=== PATIENT | female | born 1980 | race Caucasian/White ===

== ENCOUNTER → 2019-09-30 | Outpatient (CLI) | payer OTHER ==
[~2019-09-30] MED LIST: MIRT15TA6 PO; QUET100T PO
--- NOTE | 2019-09-30 16:05 | Diagnostic Imaging Report ---
INDICATION: Left shoulder pain. TIME OF EXAM: 3:42 PM 2 views left shoulder demonstrate normal glenohumeral and acromioclavicular alignment. Acromiohumeral space is normal. No fracture or dislocation is seen. IMPRESSION: No acute bony abnormality is detected. Dictated by: Dictated on workstation # [id number]
== END ==
LOC: RAD FS 15:33
PROVIDERS: ATTEND Family Medicine
DX: M25.512 Pain in left shoulder (principal)
CPT/HCPCS: 73030

== ENCOUNTER 2019-12-31 19:48 | Emergency (ER) | payer OTHER ==
[~2019-12-31] VITALS: Ht 162.5 cm; Wt 62.5 kg
[2019-12-31 20:21] LABS: BASOPHILS % (AUTO) 0 % (0-10); EOSINOPHILS # (AUTO) 0.1 10^3/uL (0.0-0.3); EOSINOPHILS % (AUTO) 1 % (0-10); HEMATOCRIT 38 % (35-52); HEMOGLOBIN 13.4 G/DL (11.5-16.0); LYMPHOCYTES # (AUTO) 2.4 X 10^3 (1.0-4.0); LYMPHOCYTES % (AUTO) 30 % (12-44); MEAN CORPUSCULAR HEMOGLOBIN 31 PG (25-34); MEAN CORPUSCULAR HGB CONC 35 G/DL (32-36); MEAN CORPUSCULAR VOLUME 89 FL (80-99); MEAN PLATELET VOLUME 9.4 FL (7.4-10.4); MONOCYTES # (AUTO) 0.6 X 10^3 (0.0-1.0); MONOCYTES % (AUTO) 8 % (0-12); NEUTROPHILS # (AUTO) 4.8 X 10^3 (1.8-7.8); NEUTROPHILS % (AUTO) 61 % (42-75); PLATELET COUNT 254 10^3/uL (130-400); RED CELL DISTRIBUTION WIDTH 11.9 % (10.0-14.5)
--- NOTE | 2019-12-31 20:26 | ED Cough/URI ---
General Chief Complaint: Respiratory Problems Stated Complaint: SOB,CP, ARM NUMBNESS Nursing Triage Note: PATIENT STATES THAT SHE HAS ASTHMA AND HAS BEEN SOB ON AND OFF SINCE LAST MONDAY (12/25/19) AND THAT HER ALBUTEROL HAS NOT BEEN HELPING. SHE DENIES HAVING A FEVER OR A COUGH. Sepsis Screen: Possible Severe Sepsis Risk Source: patient History of Present Illness Date Seen by Provider: Dec 31, 2019 Time Seen by Provider: 20:25 Initial Comments To ER with a complaint of a one-week history of "burning sharp" chest pain. She's been intermittently short of breath. No cough no fevers. History of asthma. Does not smoke. Timing/Duration: just prior to arrival Severity/Quality: moderate Associated Symptoms: cough, shortness of breath Allergies and Home Medications Allergies Coded Allergies: No Known Drug Allergies (Unverified , 06/16/11) Home Medications Prednisone 20 Mg Tab, 40 MG PO DAILY Prescribed by: PRASANNA RICHTER on 12/31/192117 Patient Home Medication List Home Medication List Reviewed: Yes Review of Systems Review of Systems Constitutional: see HPI EENTM: see HPI Respiratory: see HPI Cardiovascular: no symptoms reported Genitourinary: no symptoms reported Musculoskeletal: no symptoms reported Skin: no symptoms reported Psychiatric/Neurological: No Symptoms Reported Hematologic/Lymphatic: No Symptoms Reported Immunological/Allergic: no symptoms reported Past Lyxiqea-Bbkjgx-Pafeyi Hx Patient Social History Recent Foreign Travel: No Contact w/Someone Who Travel: No Recent Infectious Disease Expo: No Past Medical History : No Physical Exam Vital Signs - First Documented 12/31/19 20:11 Temp 36.4 Pulse 92 Resp 22 B/P (MAP) 127/92 (104) Pulse Ox 99 O2 Delivery Room Air Capillary Refill : Less Than 3 Seconds Height: '" Weight: lbs. oz. kg; 23.00 BMI Method: General Appearance: WD/WN, no apparent distress Eyes: Bilateral Eye Normal Inspection, Bilateral Eye PERRL, Bilateral Eye EOMI Neck: non-tender, full range of motion Respiratory: no respiratory distress, no accessory muscle use, other (clear lung sounds good air movement oxygen saturation 100% room air) Cardiovascular: regular rate, rhythm, no murmur, other (rate of 95-105) Gastrointestinal: normal bowel sounds, soft Neurologic/Psychiatric: alert, normal mood/affect, oriented x 3 Skin: normal color, warm/dry Progress/Results/Core Measures Suspected Sepsis Recent Fever Within 48 Hours: No Infection Criteria Present: Suspected New Infection New/Unexplained Altered Menta: No Sepsis Screen: Possible Severe Sepsis Risk SIRS Temperature: Pulse: 92 Respiratory Rate: 22 Laboratory Tests 12/31/19 20:12: White Blood Count 8.0 Blood Pressure 127 /92 Mean: 104 Laboratory Tests 12/31/19 20:12: Creatinine 0.85, INR Comment 0.9, Platelet Count 254, Total Bilirubin 0.3 Results/Orders Lab Results Laboratory Tests Test 12/31/19 20:12 Range/Units White Blood Count 8.0 4.3-11.0 10^3/uL Red Blood Count 4.29 L 4.35-5.85 10^6/uL Hemoglobin 13.4 11.5-16.0 G/DL Hematocrit 38 35-52 % Mean Corpuscular Volume 89 80-99 FL Mean Corpuscular Hemoglobin 31 25-34 PG Mean Corpuscular Hemoglobin Concent 35 32-36 G/DL Red Cell Distribution Width 11.9 10.0-14.5 % Platelet Count 254 130-400 10^3/uL Mean Platelet Volume 9.4 7.4-10.4 FL Neutrophils (%) (Auto) 61 42-75 % Lymphocytes (%) (Auto) 30 12-44 % Monocytes (%) (Auto) 8 0-12 % Eosinophils (%) (Auto) 1 0-10 % Basophils (%) (Auto) 0 0-10 % Neutrophils # (Auto) 4.8 1.8-7.8 X 10^3 Lymphocytes # (Auto) 2.4 1.0-4.0 X 10^3 Monocytes # (Auto) 0.6 0.0-1.0 X 10^3 Eosinophils # (Auto) 0.1 0.0-0.3 10^3/uL Basophils # (Auto) 0.0 0.0-0.1 10^3/uL Prothrombin Time 12.3 12.2-14.7 SEC INR Comment 0.9 0.8-1.4 Activated Partial Thromboplast Time 28 24-35 SEC D-Dimer 0.28 0.00-0.49 UG/ML Sodium Level 138 135-145 MMOL/L Potassium Level 3.4 L 3.6-5.0 MMOL/L Chloride Level 105 98-107 MMOL/L Carbon Dioxide Level 22 21-32 MMOL/L Anion Gap 11 5-14 MMOL/L Blood Urea Nitrogen 13 7-18 MG/DL Creatinine 0.85 0.60-1.30 MG/DL Estimat Glomerular Filtration Rate > 60 BUN/Creatinine Ratio 15 Glucose Level 95 70-105 MG/DL Calcium Level 9.4 8.5-10.1 MG/DL Corrected Calcium 9.0 8.5-10.1 MG/DL Magnesium Level 2.0 1.6-2.4 MG/DL Total Bilirubin 0.3 0.1-1.0 MG/DL Aspartate Amino Transf (AST/SGOT) 24 5-34 U/L Alanine Aminotransferase (ALT/SGPT) 23 0-55 U/L Alkaline Phosphatase 55 40-136 U/L Myoglobin 24.7 10.0-92.0 NG/ML Troponin I < 0.028 <0.028 NG/ML B-Type Natriuretic Peptide < 10.0 <100.0 PG/ML Total Protein 7.5 6.4-8.2 GM/DL Albumin 4.5 3.2-4.5 GM/DL My Orders Orders - PRASANNA RICHTER [employer] CONDITIONING MECH[employer]IC Cbc With Automated Diff (12/31/19 19:50) Magnesium (12/31/19 19:50) Chest 1 View, Ap/Pa Only (12/31/19 19:50) Ekg Tracing (12/31/19 19:50) Comprehensive Metabolic Panel (12/31/19 19:50) Myoglobin Serum (12/31/19 19:50) Protime With Inr (12/31/19 19:50) Partial Thromboplastin Time (12/31/19 19:50) O2 (12/31/19 19:50) Monitor-Rhythm Ecg Trace Only (12/31/19 19:50) Ed Iv/Invasive Line Start (12/31/19 19:50) Troponin I (12/31/19 19:50) Fibrin Degradation Products (12/31/19 19:50) BNP (12/31/19 20:15) Ketorolac Injection (Toradol Injection) (12/31/19 20:30) Hs C Reactive Protein (12/31/19 21:18) Medications Given in ED Current Medications Medications Dose Ordered Sig/Jenny Route Start Time Stop Time Status Last Admin Dose Admin Ketorolac Tromethamine 15 mg ONCE ONCE IVP 12/31/19 20:30 12/31/19 20:31 DC 12/31/19 20:41 15 MG Vital Signs/I&O 12/31/19 12/31/19 20:11 21:25 Temp 36.4 36.5 Pulse 92 93 Resp 22 20 B/P (MAP) 127/92 (104) 112/80 Pulse Ox 99 99 O2 Delivery Room Air Room Air Capillary Refill : Less Than 3 Seconds Blood Pressure Mean: 104 Departure Communication (Admissions) Patient initially reported no drug allergies. After discharge she came back to the registration desk and reports that she is allergic to prednisone. Advised her not to take it. Impression Primary Impression: Chest pain, pleuritic Additional Impression: intermittent dyspnea Disposition: HOME, SELF-CARE Condition: Stable Departure-Patient Inst. Decision time for Depature: 21:17 Referrals: SELFMALLORY MD (PCP/Family) Primary Care Physician Patient Instructions: Pleuritic Chest Pain Add. Discharge Instructions: Prednisone as directed 2. Return to ER for any concerns 3. Follow-up with your doctor later this week for recheck. All discharge instructions reviewed with patient and/or family. Voiced understanding. Scripts Prednisone (Prednisone) 20 Mg Tab 40 MG PO DAILY, #6 TAB 0 Refills Prov: PRASANNA RICHTER APRN 12/31/19 Work/School Note: Work Release Form Date Seen in the Emergency Department: Dec 31, 2019 Return to Work: Jan 02, 2020 PRASANNA RICHTER APRN Dec 31, 2019 20:26
[2019-12-31] MEDS ORDERED: KETOROLAC 30 MG/ML VIAL IVP ONE (20:30)
[2019-12-31 20:34] LABS: INR 0.9 (0.8-1.4); PROTHROMBIN TIME PATIENT 12.3 SEC (12.2-14.7)
[2019-12-31 20:41] LABS: ALANINE AMINOTRANSFERASE 23 U/L (0-55); ALBUMIN 4.5 GM/DL (3.2-4.5); ALKALINE PHOSPHATASE 55 U/L (40-136); BILIRUBIN,TOTAL 0.3 MG/DL (0.1-1.0); BUN/CREATININE RATIO 15; CALCIUM 9.4 MG/DL (8.5-10.1); CARBON DIOXIDE 22 MMOL/L (21-32); CHLORIDE 105 MMOL/L (98-107); CREATININE SERUM 0.85 MG/DL (0.60-1.30); GFR ESTIMATED > 60; GLUCOSE 95 MG/DL (70-105); POTASSIUM 3.4 MMOL/L (3.6-5.0); SODIUM 138 MMOL/L (135-145); TOTAL PROTEIN 7.5 GM/DL (6.4-8.2)
--- OUTSIDE RECORDS SUMMARY | 2019-12-31 20:56 | XMS REPORT | Continuity of Care Document ---
Demographics x Preferred Language Unknown Marital Status Unknown Episcopal Affiliation Unknown Race Unknown Ethnic Group Unknown Author Organization Unknown Address Unknown Phone Unavailable Allergies Active Description Code Type Severity Reaction Onset Reported/Identified Relationship to Patient Clinical Status Yes No Known Drug Allergies [id number] Drug Allergy Unknown N/A 06/16/2011 Medications There is no data. Problems Date Dx Coded Attending Type Code Diagnosis Diagnosed By 10/03/2019 ROSCOE GONZALEZ MD, Ot M25.512 PAIN IN LEFT SHOULDER 10/03/2019 ROSCOE GONZALEZ MD, Ot M25.512 PAIN IN LEFT SHOULDER 10/06/2019 ROSCOE GONZALEZ MD, Ot M25.512 PAIN IN LEFT SHOULDER Procedures There is no data. Results Test Result Range ANEMIA PANEL - 01/07/19 10:30 IRON, TOTAL 72 mcg/dL 40-190 FERRITIN 39 ng/mL 10-154 IRON BINDING CAPACITY 304 mcg/dL (calc) 250-450 % SATURATION 24 % (calc) 11-50 CMP - 01/07/19 10:30 GLUCOSE 89 mg/dL 65-139 UREA NITROGEN (BUN) 17 mg/dL 7-25 CREATININE 0.75 mg/dL 0.50-1.10 eGFR NON-AFR. CHILEAN 102 mL/min/1.73m2 > OR = 60 eGFR 118 mL/min/1.73m2 > OR = 60 BUN/CREATININE RATIO NOT APPLICABLE (calc) 6-22 SODIUM 134 mmol/L 135-146 POTASSIUM 4.0 mmol/L 3.5-5.3 CHLORIDE 101 mmol/L 98-110 CARBON DIOXIDE 27 mmol/L 20-32 CALCIUM 9.7 mg/dL 8.6-10.2 PROTEIN, TOTAL 6.8 g/dL 6.1-8.1 ALBUMIN 4.6 g/dL 3.6-5.1 GLOBULIN 2.2 g/dL (calc) 1.9-3.7 ALBUMIN/GLOBULIN RATIO 2.1 (calc) 1.0-2. 5 BILIRUBIN, TOTAL 0.3 mg/dL 0.2-1.2 ALKALINE PHOSPHATASE 46 U/L 33-115 AST 15 U/L 10-30 ALT 15 U/L 6-29 Encounters ACCT No. Visit Date/Time Discharge Status Pt. Type Provider Facility Loc./Unit Complaint [id number] 10/17/2019 10:45:00 10/17/2019 23:59: 59 [facility] Outpatient [facility] [id number] 01/07/2019 10:45:00 Document Registration [id number] 09/30/2019 15:33:00 020 23:59:59 CLS Outpatient LISA BRITO, ROSCOE [facility] RAD FS M25.512
[2019-12-31] MEDS ORDERED: PRD20T PO (21:18)
--- NOTE | 2019-12-31 21:22 | Diagnostic Imaging Report ---
INDICATION: History of asthma, intermittent shortness of breath for several days.. TECHNIQUE: Single view chest 9:01 PM. CORRELATION STUDY: 06/16/2011 FINDINGS: The heart size, mediastinal configuration and pulmonary vascularity are within normal limits. The lungs are clear with no consolidating infiltrate. There is no significant effusion or pneumothorax. IMPRESSION: 1. Negative for acute abnormality of the chest. Dictated by: Dictated on workstation # [id number]
[2019-12-31 21:25] VITALS: BP 112/80
== END 2019-12-31 21:27 | disposition home or self-care (01) ==
LOC: EDUNIT# 19:48 → ER 19:51
DX: R07.81 Pleurodynia (principal); R06.09 Other forms of dyspnea
CPT/HCPCS: 36415; 71045; 80053; 83735; 83874; 83880; 84484; 85025; 85379; 85610; 85730; 86141; 93005; 93041

== ENCOUNTER 2020-01-03 08:55 | Outpatient (RCR) | payer OTHER ==
[~2020-01-03 08:55] MED LIST changes: +PRD20T PO
== END 2020-04-02 | disposition home or self-care (01) ==
LOC: CARD 08:55
PROVIDERS: ATTEND Nurse Practitioner
DX: I49.1 Atrial premature depolarization (principal); I49.3 Ventricular premature depolarization
CPT/HCPCS: 93225; 93226

== ENCOUNTER → 2020-01-06 | Outpatient (CLI) | payer OTHER ==
--- NOTE | 2020-01-06 16:20 | Diagnostic Imaging Report ---
EXAMINATION: CT Chest without contrast. TECHNIQUE: Multiple contiguous axial images were obtained through the chest without the use of intravenous contrast. All CT scans use one or more of the following dose optimizing techniques: automated exposure control, MA and/or KvP adjustment based on a patient size and exam type, or iterative reconstruction. HISTORY: Shortness of breath and chest pain. COMPARISON: None available. FINDINGS: There is no edema or pneumonia. No pleural effusion. No pneumothorax. No suspicious nodules. Heart size is normal. There are mild coronary artery calcifications. No pericardial effusion. Aorta is normal in caliber. There is no axillary or supraclavicular lymphadenopathy. There is no mediastinal lymphadenopathy. There is normal thymus in the anterior mediastinum. Limited views of the upper abdomen are unremarkable. There are no suspicious osseous lesions. IMPRESSION: 1. Clear lungs. Dictated by: Dictated on workstation # [id number]
== END ==
LOC: RAD 15:42
PROVIDERS: ATTEND Nurse Practitioner
DX: R07.9 Chest pain, unspecified (principal); R06.00 Dyspnea, unspecified; R42 Dizziness and giddiness
CPT/HCPCS: 71250

== ENCOUNTER → 2020-04-07 | Outpatient (CLI) | payer OTHER | LOC: CARD 09:39 | PROVIDERS: ATTEND Internal Medicine Cardiovascular Disease | DX: R07.89 Other chest pain (principal) | CPT/HCPCS: 93306; 93351 ==

== ENCOUNTER → 2021-01-05 | Outpatient (CLI) | payer BC, OTHER ==
--- NOTE | 2021-01-05 09:12 | Diagnostic Imaging Report ---
EXAM: CT abdomen and pelvis without intravenous contrast. All CT scans use one or more of the following dose optimizing techniques: automated exposure control, MA and/or KvP adjustment based on patient size and exam type or iterative reconstruction. INDICATION: Abdominal pain with constipation. FINDINGS: The lung bases are clear. Liver appears normal. Gallbladder and bile ducts are normal. Pancreas and spleen are normal. Adrenal glands and kidneys appear normal. The stomach and small bowel are not distended. There is moderate amount of stool present throughout the colon to the proximal rectum. No evidence of impacted stool in the rectum. No evidence of bowel wall thickening or diverticulitis. The appendix appears to be absent. No pelvic masses. Uterus and ovaries appear normal. Bladder is normal. No free air or free fluid. No intra-abdominal adenopathy of pathologic size. IMPRESSION: Moderate stool burden within the colon. No evidence of impacted stool in the rectum. No evidence of small bowel distention. Dictated by: Dictated on workstation # [id number]
== END ==
LOC: RAD FS 07:56
PROVIDERS: ATTEND Family Medicine
DX: R10.9 Unspecified abdominal pain (principal); K59.00 Constipation, unspecified
CPT/HCPCS: 74176

== ENCOUNTER 2021-02-01 06:22 | Outpatient (CLI) | payer BC ==
[~2021-02-01] VITALS: Ht 162.6 cm; Wt 63.6 kg
[2021-02-01] MEDS ORDERED: stool softener (13:32)
[2021-02-01] MEDS ORDERED: RT-ALBUINH IH (13:32)
[2021-02-01] MEDS ORDERED: bisacodyl (13:32)
[2021-02-01] MEDS ORDERED: iron (13:32)
== END 2021-02-01 13:34 | disposition home or self-care (01) ==
LOC: PREOP 06:22
PROVIDERS: ATTEND Surgery
DX: Z01.818 Encounter for other preprocedural examination (principal)

== ENCOUNTER 2021-02-09 10:22 | Day surgery (SDC) | payer BC ==
[~2021-02-09] VITALS: Ht 162.6 cm; Wt 63.6 kg
[~2021-02-09 10:22] MED LIST changes: +LACTATED RINGERS 1,000 ML IV ONE; +RT-ALBUINH IH; +bisacodyl; +iron; +stool softener
[2021-02-09] MEDS ORDERED: LACTATED RINGERS 1,000 ML IV STA (10:25)
[2021-02-09 10:53] VITALS: BP 119/90
[2021-02-09] MEDS ORDERED: PROPOFOL INJECTION 50 ML IV ONE (12:17)
[2021-02-09] MEDS ORDERED: MIDAZOLAM 2 MG/2 ML (VERSED) VIAL ONE (12:18)
--- NOTE | 2021-02-09 12:57 | Progress Note-Pre Operative ---
Pre-Operative Progress Note H&P Reviewed The H&P was reviewed, patient examined and no changes noted. Date Seen by Provider: Feb 09, 2021 Time Seen by Provider: 12:56 Date H&P Reviewed: Feb 09, 2021 Time H&P Reviewed: 12:56 Pre-Operative Diagnosis: lower abdominal pain, chronic constipation ELTON MILLS DO Feb 09, 2021 12:57
--- NOTE | 2021-02-09 13:19 | Progress Note-Post Operative ---
Post-Operative Progess Note Surgeon (s)/Speedboat Driver (s) Surgeon ELTON MILLS DO Speedboat Driver: na Pre-Operative Diagnosis lower abdominal pain, chronic constipation Post-Operative Diagnosis normal colon Procedure & Operative Findings Date of Procedure 02/09/21 Procedure Performed/Findings colonoscopy Anesthesia Type per tractor distributor Estimated Blood Loss Estimated blood loss (mL): na Specimens/Packing Specimens Removed na ELTON MILLS DO Feb 09, 2021 13:19
--- NOTE | 2021-02-09 13:22 | Discharge Inst-Simple/Standard ---
Discharge Inst-Standard Patient Instructions/Follow Up Plan of Care/Instructions/FU: 3 weeks Pat Hines (fiber) by mouth daily. Activity as Tolerated: Yes Discharge Diet: Regular Diet (High fiber) ELTON MILLS DO Feb 09, 2021 13:22
[2021-02-09 13:23] VITALS: BP 111/64
[2021-02-09 13:25] VITALS: BP 109/63
[2021-02-09 14:05] VITALS: BP 109/63
--- NOTE | 2021-02-09 14:25 | Anesthesia-General Post-Op ---
MAC Patient Condition Mental Status/LOC: Same as Preop Cardiovascular: Satisfactory Nausea/Vomiting: Absent Respiratory: Satisfactory Pain: Controlled Complications: Absent Post Op Complications Complications None Follow Up Care/Instructions Patient Instructions None needed. Anesthesiology Discharge Order Discharge Order Patient is doing well, no complaints, stable vital signs, no apparent adverse anesthesia problems. No complications reported per nursing. ROHAN GIRALDO CRNA Feb 09, 2021 14:25
--- NOTE | 2021-02-09 15:10 | OPERATIVE REPORT ---
DATE OF SERVICE: 02/09/2021 PREOPERATIVE DIAGNOSIS: Chronic constipation and lower abdominal pain. POSTOPERATIVE DIAGNOSIS: Normal colon. PROCEDURE PERFORMED: Colonoscopy. SURGEON: Elton Stewart DO ANESTHESIA: Per CERTIFIED MEDICAL CODER. ESTIMATED BLOOD LOSS: None. COMPLICATIONS: None. INDICATIONS FOR PROCEDURE: The patient is a 40-year-old female with chronic constipation and lower abdominal pain. She understands the risks and benefits of procedure for further evaluation and wishes to proceed. Consent was signed in the chart. DESCRIPTION OF PROCEDURE: The patient was taken to the endoscopy suite and placed in a left lateral recumbent position. Timeout was performed. Digital rectal exam was performed. There were no palpable polyps, masses or ulcerations, but some external hemorrhoidal disease. Scope was inserted in the rectum, advanced all the way to the cecum with minimal difficulty. The ileocecal valve was intubated. The terminal ileum appeared. Scope was then slowly retracted back into the colon and then slowly retracted back. Prep was adequate. As the scope was being slowly retracted back, the colon was evaluated. There were no polyps, masses or ulcerations within the cecum, ascending, transverse, descending and sigmoid colon. Once in the rectum, scope was retroflexed noting no other pathology. Scope was returned to its normal position, slowly withdrawn until completely removed, noting no other pathology. The patient tolerated the procedure well without any complications. She was taken to recovery room in a stable condition. RECOMMENDATIONS: The patient will need a repeat colonoscopy per screening guidelines. I would recommend high fiber diet to see if any trouble . If this is not beneficial, would consider trial of Linzess. Job ID: [id number] DocumentID: [id number] Dictated Date: 02/09/2021 13:25:21 Program Production Specialist Date: 02/09/2021 15:09:20 Dictated By: ELTON STEWART DO
== END 2021-02-09 14:10 | disposition home or self-care (01) ==
LOC: ENDO 10:22
PROVIDERS: ATTEND Surgery
DX: K59.09 Other constipation (principal); K64.8 Other hemorrhoids; J45.909 Unspecified asthma, uncomplicated; Z79.899 Other long term (current) drug therapy; Z87.891 Personal history of nicotine dependence; Z90.89 Acquired absence of other organs; Z82.49 Family history of ischemic heart disease and other diseases of the circulatory system; Z83.6 Family history of other diseases of the respiratory system
CPT/HCPCS: 84703

== ENCOUNTER 2022-08-07 12:02 | Emergency (ER) | payer SELFPAY ==
[~2022-08-07] VITALS: Ht 160 cm; Wt 49.9 kg
[~2022-08-07 12:02] MED LIST changes: +ALBU8.5H6 IH; -LACTATED RINGERS 1,000 ML IV ONE; -RT-ALBUINH IH
[2022-08-07 12:20] LABS: BILIRUBIN,URINE NEGATIVE (NEGATIVE); COLOR,URINE YELLOW; GLUCOSE, URINE (UA) NEGATIVE (NEGATIVE); KETONES,URINE NEGATIVE (NEGATIVE); LEUKOCYTE ESTERASE ,URINE NEGATIVE (NEGATIVE); NITRITE,URINE NEGATIVE (NEGATIVE); PROTEIN,URINE TRACE (NEGATIVE)
[2022-08-07] MEDS ORDERED: KETOROLAC 15 MG/ML VIAL IVP STA (12:25)
[2022-08-07] MEDS ORDERED: PANTOPRAZOLE 40 MG (PROTONIX) VIAL IV STA (12:25)
[2022-08-07] MEDS ORDERED: NS IV 1000 ML 1,000 ML IV STA (12:25)
[2022-08-07 12:26] LABS: CLARITY,URINE SLIGHTLY CLOUDY
[2022-08-07 12:27] LABS: BACTERIA,URINE LARGE /HPF
[2022-08-07 12:31] LABS: AMPHETAMINE SCREEN, URINE NEGATIVE (NEGATIVE); BARBITURATE SCREEN URINE NEGATIVE (NEGATIVE); BENZODIAZEPINES SCREEN URINE NEGATIVE (NEGATIVE); CANNABINOID SCREEN, URINE NEGATIVE (NEGATIVE); COCAINE SCREEN URINE NEGATIVE (NEGATIVE); METHADONE STAT NEGATIVE (NEGATIVE); OPIATE SCREEN URINE NEGATIVE (NEGATIVE); OXYCODONE STAT NEGATIVE (NEGATIVE); PROPOXYPHENE STAT NEGATIVE (NEGATIVE); TRICYCLIC ANTIDEPRESSANTS SCRE NEGATIVE (NEGATIVE)
[2022-08-07 12:33] LABS: BASOPHILS % (AUTO) 0 % (0-10); EOSINOPHILS % (AUTO) 0 % (0-10); HEMATOCRIT 40 % (35-52); LYMPHOCYTES # (AUTO) 1.2 10^3/uL (1.0-4.0); LYMPHOCYTES % (AUTO) 11 % (12-44); MEAN CORPUSCULAR HEMOGLOBIN 32 pg (25-34); MEAN CORPUSCULAR HGB CONC 35 g/dL (32-36); MEAN CORPUSCULAR VOLUME 93 fL (80-99); MEAN PLATELET VOLUME 9.6 fL (9.0-12.2); MONOCYTES # (AUTO) 0.7 10^3/uL (0.0-1.0); MONOCYTES % (AUTO) 6 % (0-12); NEUTROPHILS # (AUTO) 8.9 10^3/uL (1.8-7.8); NEUTROPHILS % (AUTO) 82 % (42-75); PLATELET COUNT 291 10^3/uL (130-400); WHITE BLOOD COUNT 10.9 10^3/uL (4.3-11.0)
--- NOTE | 2022-08-07 12:36 | ED General ---
General Chief Complaint: Overdose Stated Complaint: OVERDOSE-MELATONIN Source of Information: Patient, Old Records History of Present Illness Date Seen by Provider: Aug 07, 2022 Time Seen by Provider: 12:05 Initial Comments 41-year-old female presenting with complaints of heavy alcohol intoxication last night and taking 2 bottles of melatonin. She states that she does not like pills and does not remember why she had taken the 2 bottles. She had sent a text to her boyfriend after she took the pills. She continued to drink until about 2 AM. She reports that she had previously quit drinking alcohol and then recently started back to drinking. She acknowledges that she is an alcoholic and states that she wants to quit drinking. She has had suicidal thoughts in the past but never had any specific plan. She denies having suicidal ideation currently. She reports having some chest pressure and was vomiting this morning when she tried to drink Gatorade. She denies ever having alcohol withdrawal seizures or having to be admitted to the hospital for her alcohol usage. She denies taking any other drugs. She states her last menstrual cycle was last week and was normal for her. Associated Systoms: Chest Pain (pressure in chest present all morning); No Cough, No Diaphoresis, No Fever/Chills, No Headaches; Malaise, Nausea/Vomiting (x 2 this am after trying to drink gatorade); No Rash, No Seizure, No Shortness of Air, No Syncope, No Weakness Allergies and Home Medications Allergies Coded Allergies: prednisone (Verified Allergy, Severe, hives, 02/01/21) Patient Home Medication List Home Medication List Reviewed: Yes Albuterol Sulfate (Ventolin Hfa) 1 Puff Puff, 2 PUFF IH QID, (Reported) Entered as Reported by: MALACHI GRAY on 02/01/211331 [bisacodyl] , (Reported) Entered as Reported by: MALACHI GRAY on 02/01/211331 [iron] , (Reported) Entered as Reported by: MALACHI GRAY on 02/01/211331 [stool softener] , (Reported) Entered as Reported by: MALACHI GRAY on 02/01/211331 Review of Systems Review of Systems Constitutional: No chills, No diaphoresis, No dizziness, No fever EENTM: no symptoms reported Respiratory: no symptoms reported Cardiovascular: see HPI Gastrointestinal: see HPI Genitourinary: no symptoms reported; No dysuria, No frequency Musculoskeletal: no symptoms reported Skin: No rash Psychiatric/Neurological: Denies Headache Past Achtxzx-Lbappg-Lieewd Hx Patient Social History Tobacco Use?: Yes Tobacco type used: Cigarettes Substance use?: No Alcohol Use?: Yes Alcohol type: Hard Liquor Alcohol Frequency: Daily Seasonal Allergies Seasonal Allergies: No Past Medical History Surgery/Hospitalization HX: Alcohol Abuse, Asthma Surgeries: Yes (left finger sx, excision eptopic preg x2) Appendectomy, Orthopedic Respiratory: Yes Asthma Currently Using CPAP: No Currently Using BIPAP: No Cardiac: No Neurological: No Female Reproductive Disorders: Ovarian Cyst Sexually Transmitted Disease: No Genitourinary: No Gastrointestinal: No Musculoskeletal: Yes Fibromyalgia Endocrine: No HEENT: No Cancer: No Anxiety, Depression Integumentary: No Blood Disorders: No Adverse Reaction/Blood Tranf: No Physical Exam Vital Signs Vital Signs - First Documented 08/07/22 12:06 Temp 36.2 Pulse 134 Resp 20 B/P (MAP) 116/96 (103) Pulse Ox 98 O2 Delivery Room Air Capillary Refill : Height, Weight, BMI Height: '" Weight: lbs. oz. kg; 24.05 BMI Method: General Appearance: No Apparent Distress, Thin HEENT: PERRL/EOMI, Pharynx Normal, Moist Mucous Membranes Neck: Full Range of Motion, Normal Inspection, Non Tender, Supple Respiratory: Chest Non Tender, Lungs Clear, Normal Breath Sounds, No Accessory Muscle Use, No Respiratory Distress Cardiovascular: Normal Peripheral Pulses, Tachycardia Gastrointestinal: Normal Bowel Sounds, No Pulsatile Mass, Non Tender, Soft Rectal: Deferred Extremity: Normal Capillary Refill, Normal Inspection, No Pedal Edema Neurologic/Psychiatric: Alert, Oriented x3, heel boom operator II-XII Norm as Tested, Other (flat affect) Skin: Normal Color, Warm/Dry Progress/Results/Core Measures Suspected Sepsis SIRS Temperature: Pulse: Respiratory Rate: Laboratory Tests 08/07/22 12:30: White Blood Count 10.9 Blood Pressure / Mean: Laboratory Tests 08/07/22 12:30: Creatinine 0.71, Platelet Count 291, Total Bilirubin 0.2 Results/Orders Lab Results Laboratory Tests Test 08/07/22 12:15 08/07/22 12:30 Range/Units Urine Color YELLOW Urine Clarity SLIGHTLY CLOUDY Urine pH 5.0 5-9 Urine Specific [place] >=1.030 1.016-1.022 Urine Protein TRACE H NEGATIVE Urine Glucose (UA) NEGATIVE NEGATIVE Urine Ketones NEGATIVE NEGATIVE Urine Nitrite NEGATIVE NEGATIVE Urine Bilirubin NEGATIVE NEGATIVE Urine Urobilinogen 0.2 < = 1.0 MG/DL Urine Leukocyte Esterase NEGATIVE NEGATIVE Urine RBC (Auto) NEGATIVE NEGATIVE Urine RBC NONE /HPF Urine WBC 10-25 H /HPF Urine Squamous Epithelial Cells 10-25 H /HPF Urine Crystals NONE /LPF Urine Bacteria LARGE H /HPF Urine Casts NONE /LPF Urine Mucus LARGE H /LPF Urine Culture Indicated YES Urine Opiates Screen NEGATIVE NEGATIVE Urine Oxycodone Screen NEGATIVE NEGATIVE Urine Methadone Screen NEGATIVE NEGATIVE Urine Propoxyphene Screen NEGATIVE NEGATIVE Urine Barbiturates Screen NEGATIVE NEGATIVE Ur Tricyclic Antidepressants Screen NEGATIVE NEGATIVE Urine Phencyclidine Screen NEGATIVE NEGATIVE Urine Amphetamines Screen NEGATIVE NEGATIVE Urine Methamphetamines Screen NEGATIVE NEGATIVE Urine Benzodiazepines Screen NEGATIVE NEGATIVE Urine Cocaine Screen NEGATIVE NEGATIVE Urine Cannabinoids Screen NEGATIVE NEGATIVE White Blood Count 10.9 4.3-11.0 10^3/uL Red Blood Count 4.35 3.80-5.11 10^6/uL Hemoglobin 14.0 11.5-16.0 g/dL Hematocrit 40 35-52 % Mean Corpuscular Volume 93 80-99 fL Mean Corpuscular Hemoglobin 32 25-34 pg Mean Corpuscular Hemoglobin Concent 35 32-36 g/dL Red Cell Distribution Width 12.3 10.0-14.5 % Platelet Count 291 130-400 10^3/uL Mean Platelet Volume 9.6 9.0-12.2 fL Immature Granulocyte % (Auto) 0 % Neutrophils (%) (Auto) 82 H 42-75 % Lymphocytes (%) (Auto) 11 L 12-44 % Monocytes (%) (Auto) 6 0-12 % Eosinophils (%) (Auto) 0 0-10 % Basophils (%) (Auto) 0 0-10 % Neutrophils # (Auto) 8.9 H 1.8-7.8 10^3/uL Lymphocytes # (Auto) 1.2 1.0-4.0 10^3/uL Monocytes # (Auto) 0.7 0.0-1.0 10^3/uL Eosinophils # (Auto) 0.0 0.0-0.3 10^3/uL Basophils # (Auto) 0.0 0.0-0.1 10^3/uL Immature Granulocyte # (Auto) 0.0 0.0-0.1 10^3/uL Sodium Level 140 135-145 MMOL/L Potassium Level 3.5 L 3.6-5.0 MMOL/L Chloride Level 102 98-107 MMOL/L Carbon Dioxide Level 21 21-32 MMOL/L Anion Gap 17 H 5-14 MMOL/L Blood Urea Nitrogen 7 7-18 MG/DL Creatinine 0.71 0.60-1.30 MG/DL Estimat Glomerular Filtration Rate 110 BUN/Creatinine Ratio 10 Glucose Level 122 H 70-105 MG/DL Calcium Level 9.5 8.5-10.1 MG/DL Corrected Calcium 9.1 8.5-10.1 MG/DL Magnesium Level 1.6 1.6-2.4 MG/DL Total Bilirubin 0.2 0.1-1.0 MG/DL Aspartate Amino Transf (AST/SGOT) 13 5-34 U/L Alanine Aminotransferase (ALT/SGPT) 9 0-55 U/L Alkaline Phosphatase 64 40-136 U/L Troponin I < 0.30 <0.30 NG/ML Pro-B-Type Natriuretic Peptide 47.0 <125.0 PG/ML Total Protein 7.4 6.4-8.2 GM/DL Albumin 4.5 3.2-4.5 GM/DL Lipase 102 H 8-78 U/L Salicylates Level < 0.3 L 5.0-20.0 MG/DL Acetaminophen Level < 10 L 10-30 UG/ML Serum Alcohol 17 H <10 MG/DL My Orders Orders - CHANDA ALEJANDRO MD Ua Culture If Indicated (08/07/22 12:11) Drug Screen Stat (Urine) (08/07/22 12:11) Urine Bedside (08/07/22 12:11) Urine Culture (08/07/22 12:15) Cbc With Automated Diff (08/07/22 12:25) Comprehensive Metabolic Panel (08/07/22 12:25) Alcohol (08/07/22 12:25) Acetaminophen (08/07/22 12:25) Salicylate (08/07/22 12:25) Ekg Tracing (08/07/22 12:25) Ed Iv/Invasive Line Start (08/07/22 12:25) Monitor-Rhythm Ecg Trace Only (08/07/22 12:25) Ns Iv 1000 Ml (Sodium Chloride 0.9%) (08/07/22 12:25) Pantoprazole Injection (Protonix Injecti (08/07/22 12:25) Ketorolac Injection (Toradol Injection) (08/07/22 12:25) Lipase (08/07/22 12:25) Troponin I Fs (08/07/22 12:25) Probnp Fs (08/07/22 12:25) Magnesium (08/07/22 12:25) Magnesium 1 Gm/100 Ml Ivpb (Magnesium Kaur (08/07/22 13:14) Vital Signs/I&O 08/07/22 08/07/22 12:06 14:10 Temp 36.2 Pulse 134 86 Resp 20 16 B/P (MAP) 116/96 (103) 106/81 Pulse Ox 98 98 O2 Delivery Room Air Room Air Capillary Refill : Progress Note #1: Progress Note Obtain labs and urinalysis. Order electrocardiogram and cardiac enzymes since she reported having chest pressure all morning. Also check a lipase and magnesium since she has been drinking heavily. Patient states that she would like to speak with mental health about her alcohol abuse and because she wants to stop again. She says that her suicidal thoughts have been years ago and she was not having any currently. She also denies any homicidal ideation. She was concerned about the vomiting and the chest pressure as well as wanting to quit drinking. After checking with poision control they advised she did not need intervention for melatonin overdose. Progress Note #2: Progress Note Labs do not show acute significant abnormality on CBC. Chemistry with negative cardiac enzymes. Mild elevation of Lipase to 102 so it is above the upper limit of normal of 78 but not high enough to consider pancreatitis. Likely due to irritation from alcohol abuse and vomiting. UA concentrated with elevated specific gravity and some bacteria with WBC and Epithelial cells. Pt denies UTI symptoms so will defer antibiotics and await culture. Magnesium low at 1.6 so will order a 1 gm IV bolus. Counseled patient on the tests and results. She continues to deny being suicidal or homicidal. Plan updated that her labs and testing looked okay especially from a heart standpoint she wished to wait and speak with the mental health provider about her remote history of suicidal ideation as well as the alcohol abuse. Encourage patient to follow-up with the clinic about her alcohol abuse to get help with rehab and detox. Counseled to not take medicines other than as prescribed or as directed by gggz-job-wvhnquj medicine. She was willing to wait and get the magnesium IV dose but otherwise was feeling like she had improvement in her chest pressure and wanted to go home. ECG Initial ECG Impression Date: Aug 07, 2022 Initial ECG Impression Time: 12:16 Initial ECG Rate: 117 Initial ECG Rhythm: S.Tach Initial ECG Comparisson: Unchanged (similar to ECG from 12/31/2019) Comment Based on my independent review and interpretation of her ECG she has sinus tachycardia with rate of 117 bpm. She has MN interval [address] elevation. She has some global T wave flattening. there is baseline artifact and wander on the tracing. QT interval 284 ms with a QTc interval 354 ms. Overall appears similar to tracing from December 31, 2019. Departure Impression Primary Impression: Alcohol abuse Additional Impressions: Chest pressure Drug overdose Qualified Codes: T50.904A - Poisoning by unspecified drugs, medicaments and biological substances, undetermined, initial encounter Hypomagnesemia Disposition: HOME, SELF-CARE Condition: Stable Departure-Patient Inst. Decision time for Depature: 13:34 Referrals: MALLORY MENDEZ MD (PCP/Family) Primary Care Physician Patient Instructions: Alcohol Use Disorder ED, Gastritis ED, Accidental Overdose, Adult ED, Low Magnesium Level (DC) Add. Discharge Instructions: Stay well hydrated and drink plenty of water and electrolyte drinks. Follow up with clinic for additional help with alcohol rehab. do not take medicine other than as prescribed or as directed on bottle for over the counter medicine. All discharge instructions reviewed with patient and/or family. Voiced understanding. CHANDA ALEJANDRO MD Aug 07, 2022 12:36
[2022-08-07 13:04] LABS: LIPASE 102 U/L (8-78); MAGNESIUM 1.6 MG/DL (1.6-2.4); POTASSIUM 3.5 MMOL/L (3.6-5.0); SODIUM 140 MMOL/L (135-145)
[2022-08-07 13:05] LABS: ACETAMINOPHEN < 10 UG/ML (10-30); ALANINE AMINOTRANSFERASE 9 U/L (0-55); ALBUMIN 4.5 GM/DL (3.2-4.5); ALKALINE PHOSPHATASE 64 U/L (40-136); BILIRUBIN,TOTAL 0.2 MG/DL (0.1-1.0); BUN/CREATININE RATIO 10; CALCIUM 9.5 MG/DL (8.5-10.1); CARBON DIOXIDE 21 MMOL/L (21-32); CHLORIDE 102 MMOL/L (98-107); CREATININE SERUM 0.71 MG/DL (0.60-1.30); GFR ESTIMATED 110; GLUCOSE 122 MG/DL (70-105); SALICYLATE < 0.3 MG/DL (5.0-20.0); TOTAL PROTEIN 7.4 GM/DL (6.4-8.2)
[2022-08-07] MEDS ORDERED: MAGNESIUM 1 GM/100 ML IVPB 100 ML IV STA (13:14)
[2022-08-07 14:10] VITALS: BP 106/81
== END 2022-08-07 14:13 | disposition home or self-care (01) ==
LOC: EDUNIT# 12:02 → ER FS 12:03
DX: F10.20 Alcohol dependence, uncomplicated (principal); T50.991A Poisoning by other drugs, medicaments and biological substances, accidental (unintentional), initial encounter; R07.89 Other chest pain; E83.42 Hypomagnesemia; F17.210 Nicotine dependence, cigarettes, uncomplicated; Z28.310 Unvaccinated for COVID-19
CPT/HCPCS: 36415; 80053; 80306; 81000; 83690; 83735; 83880; 84484; 84703; 85025; 87088; 93005; 93041; 99283; G0480 ×3; 80320; 80329

== ENCOUNTER 2022-09-06 06:13 | Emergency (ER) | payer SELFPAY ==
[~2022-09-06] VITALS: Ht 162 cm; Wt 47.6 kg
--- NOTE | 2022-09-06 06:55 | ED General ---
General Chief Complaint: Dizziness/Syncope Stated Complaint: DIZZINESS/N AND VOMITING Nursing Triage Note: patient verbalized last night she was dizzy and light headed. states at work this am dizzyness worsened. patient states she had abdominal pain which lead to vomitting x1. patient denies concerns for . patient states she has stopped drinking ETOH 2 wks. ago (TAMI NJ MD) History of Present Illness Date Seen by Provider: Sep 06, 2022 Time Seen by Provider: 06:44 Initial Comments 41-year-old female patient complaining of feeling dizziness as a constant problem since last that getting worse with movement of her head. Patient complaining of increasing dizziness since this morning with 5 episodes of v omiting and generalized abdominal pain. Patient states she felt shortness of breath and then has cough after her shortness of breath. Patient states she had the same problem previously with episodes of dehydration. Patient denies fever and chills, sore throat, urinary symptoms, , sick exposure. Patient had history of alcohol abuse and stopped drinking 2 weeks ago. (TAMI NJ MD) Allergies and Home Medications Allergies Coded Allergies: prednisone (Verified Allergy, Severe, hives, 02/01/21) Patient Home Medication List Home Medication List Reviewed: Yes (TAMI NJ MD) Albuterol Sulfate (Ventolin Hfa) 1 Puff Puff, 2 PUFF IH QID, (Reported) Entered as Reported by: MALACHI GRAY on 02/01/211331 Meclizine HCl (Meclizine HCl) 25 Mg Tablet, 25 MG PO TID PRN for DIZZINESS Prescribed by: CHANDA ALEJANDRO on 09/06/22 08 Ondansetron (Ondansetron Odt) 4 Mg Tab.rapdis, 4 MG PO Q6H PRN for NAUSEA/VOMITING Prescribed by: CHANDA ALEJANDRO on 09/06/22 08 [bisacodyl] , (Reported) Entered as Reported by: MALACHI GRAY on 02/01/211331 [iron] , (Reported) Entered as Reported by: MALACHI GRAY on 02/01/211331 [stool softener] , (Reported) Entered as Reported by: MALACHI GRAY on 02/01/211331 Review of Systems Review of Systems Constitutional: see HPI EENTM: see HPI Respiratory: see HPI Cardiovascular: see HPI Gastrointestinal: see HPI Genitourinary: see HPI Musculoskeletal: see HPI Skin: see HPI Psychiatric/Neurological: See HPI Hematologic/Lymphatic: See HPI Immunological/Allergic: see HPI (TAMI NJ MD) All Other Systems Reviewed Negative Unless Noted: Yes (TAMI NJ MD) Past Hgwpfdi-Dfvfhr-Ymsbhs Hx Patient Social History Tobacco Use?: Yes Tobacco type used: Cigarettes Smoking Status: Current Everyday Smoker Substance use?: No Alcohol Use?: Yes (TAMI NJ MD) Immunizations Up To Date Influenza Vaccine Up-to-Date: No; Not Current First/Initial COVID19 Vaccinat: no Second COVID19 Vaccination Nate: no (TAMI NJ MD) Seasonal Allergies Seasonal Allergies: No (TAMI NJ MD) Past Medical History Surgery/Hospitalization HX: Alcohol Abuse, Asthma Surgeries: Yes (left finger sx, excision eptopic preg x2) Appendectomy, Orthopedic Respiratory: Yes Asthma Currently Using CPAP: No Currently Using BIPAP: No Cardiac: No Neurological: No Female Reproductive Disorders: Ovarian Cyst Sexually Transmitted Disease: No Genitourinary: No Gastrointestinal: No Musculoskeletal: Yes Fibromyalgia Endocrine: No HEENT: No Cancer: No Anxiety, Depression Integumentary: No Blood Disorders: No Adverse Reaction/Blood Tranf: No (TAMI NJ MD) Physical Exam Vital Signs Vital Signs - First Documented 09/06/22 06:31 Temp 35.9 Pulse 107 Resp 16 B/P (MAP) 118/85 (96) Pulse Ox 100 O2 Delivery Room Air (CHANDA ALEJANDRO MD) Vital Signs Capillary Refill : Less Than 3 Seconds (TAMI NJ MD) Height, Weight, BMI Height: '" Weight: lbs. oz. kg; 18.00 BMI Method: General Appearance: Anxious, Mild Distress Eyes: Bilateral Eye Normal Inspection HEENT: PERRL/EOMI, Normal ENT Inspection, Pharynx Normal, Other (Dry oral mucosa) Neck: Full Range of Motion, Normal Inspection, Non Tender Respiratory: Chest Non Tender, Lungs Clear, Normal Breath Sounds, No Accessory Muscle Use, No Respiratory Distress Cardiovascular: No Edema, No Gallop, No JVD, Tachycardia Gastrointestinal: Normal Bowel Sounds, No Organomegaly, No Pulsatile Mass, Non Tender, Soft Back: Normal Inspection, No CVA Tenderness Extremity: Normal Capillary Refill, Normal Inspection, Normal Range of Motion Neurologic/Psychiatric: Alert, Oriented x3, No Motor/Sensory Deficits, Normal Mood/Affect, parcel wrapper II-XII Norm as Tested Skin: Normal Color, Warm/Dry Lymphatic: No Adenopathy (TAMI NJ MD) Progress/Results/Core Measures Suspected Sepsis SIRS Temperature: Pulse: 107 Respiratory Rate: 16 Blood Pressure 118 /85 Mean: 96 (TAMI NJ MD) Results/Orders Lab Results Laboratory Tests Test 09/06/22 06:50 09/06/22 06:57 09/06/22 07:56 Range/Units White Blood Count 6.6 4.3-11.0 10^3/uL Red Blood Count 4.29 3.80-5.11 10^6/uL Hemoglobin 13.3 11.5-16.0 g/dL Hematocrit 39 35-52 % Mean Corpuscular Volume 90 80-99 fL Mean Corpuscular Hemoglobin 31 25-34 pg Mean Corpuscular Hemoglobin Concent 35 32-36 g/dL Red Cell Distribution Width 11.9 10.0-14.5 % Platelet Count 270 130-400 10^3/uL Mean Platelet Volume 9.6 9.0-12.2 fL Immature Granulocyte % (Auto) 0 % Neutrophils (%) (Auto) 65 42-75 % Lymphocytes (%) (Auto) 24 12-44 % Monocytes (%) (Auto) 10 0-12 % Eosinophils (%) (Auto) 1 0-10 % Basophils (%) (Auto) 1 0-10 % Neutrophils # (Auto) 4.3 1.8-7.8 10^3/uL Lymphocytes # (Auto) 1.5 1.0-4.0 10^3/uL Monocytes # (Auto) 0.7 0.0-1.0 10^3/uL Eosinophils # (Auto) 0.0 0.0-0.3 10^3/uL Basophils # (Auto) 0.0 0.0-0.1 10^3/uL Immature Granulocyte # (Auto) 0.0 0.0-0.1 10^3/uL Sodium Level 139 135-145 MMOL/L Potassium Level 3.7 3.6-5.0 MMOL/L Chloride Level 104 98-107 MMOL/L Carbon Dioxide Level 22 21-32 MMOL/L Anion Gap 13 5-14 MMOL/L Blood Urea Nitrogen 15 7-18 MG/DL Creatinine 0.85 0.60-1.30 MG/DL Estimat Glomerular Filtration Rate 89 BUN/Creatinine Ratio 18 Glucose Level 97 70-105 MG/DL Calcium Level 9.9 8.5-10.1 MG/DL Corrected Calcium 9.7 8.5-10.1 MG/DL Total Bilirubin 0.3 0.1-1.0 MG/DL Aspartate Amino Transf (AST/SGOT) 12 5-34 U/L Alanine Aminotransferase (ALT/SGPT) 8 0-55 U/L Alkaline Phosphatase 51 40-136 U/L Total Protein 7.0 6.4-8.2 GM/DL Albumin 4.3 3.2-4.5 GM/DL Lipase 34 8-78 U/L Serum Alcohol < 10 <10 MG/DL Influenza Type A (RT-PCR) Not Detected Not Detecte Influenza Type B (RT-PCR) Not Detected Not Detecte SARS-CoV-2 RNA (RT-PCR) Not Detected Not Detecte Urine Color YELLOW Urine Clarity TURBID Urine pH 7.0 5-9 Urine Specific [place] 1.015 L 1.016-1.022 Urine Protein 1+ H NEGATIVE Urine Glucose (UA) NEGATIVE NEGATIVE Urine Ketones 3+ H NEGATIVE Urine Nitrite NEGATIVE NEGATIVE Urine Bilirubin 1+ H NEGATIVE Urine Urobilinogen 0.2 < = 1.0 MG/DL Urine Leukocyte Esterase NEGATIVE NEGATIVE Urine RBC (Auto) NEGATIVE NEGATIVE Urine RBC NONE /HPF Urine WBC 0-2 /HPF Urine Squamous Epithelial Cells 10-25 H /HPF Urine Crystals NONE /LPF Urine Bacteria FEW H /HPF Urine Casts NONE /LPF Urine Mucus SMALL H /LPF Urine Culture Indicated NO (CHANDA ALEJANDRO MD) My Orders Orders - CHANDA ALEJANDRO MD Meclizine Tablet (Antivert Tablet) (09/06/22 07:55) Ns Iv 1000 Ml (Sodium Chloride 0.9%) (09/06/22 07:55) Urine Bedside (09/06/22 08:02) (CHANDA ALEJNADRO MD) Medications Given in ED Current Medications Medications Dose Ordered Sig/Jenny Route Start Time Stop Time Status Last Admin Dose Admin Ondansetron HCl 4 mg ONCE ONCE IVP 09/06/22 07:00 09/06/22 07:01 DC 09/06/22 07:03 4 MG (CHANDA ALEJANDRO MD) Vital Signs/I&O 09/06/22 09/06/22 09/06/22 06:31 07:00 08:54 Temp 35.9 35.9 Pulse 107 80 75 87 110 Resp 16 16 B/P (MAP) 118/85 (96) 111/83 (92) 110/82 116/77 (90) 115/87 (96) Pulse Ox 100 100 O2 Delivery Room Air Room Air (CHANDA ALEJANDRO MD) Vital Signs/I&O Capillary Refill : Less Than 3 Seconds (TAMI NJ MD) Blood Pressure Mean: 96 Progress Note : Progress Note Patient with history of alcohol abuse stopped drinking 2 weeks ago and since last night felt dizzy with several episodes of vomiting since this morning and feeling shortness of breath. Patient had dry oral mucosa. IV fluid, Zofran, labs was ordered with pending result. Patient care transferred to Dr. Alejandro at 0700. (TAMI NJ MD) Progress Note #1: Time: 07:56 Progress Note I assumed care of the patient at [address] Nj. Her CBC, Chemistry, Alcohol level, Covid, Influenza testing were all negative and no acute significant abnormality on labs. She had alcohol <10, normal LFTs and renal function as well as basic electrolytes. Normal blood count without elevation of WBC or anemia. She was able to give a small urine specimen that was dark jesús. She had negative bedside test. When reviewing results with the patient she said she still felt dizzy and was very tired. Will repeat NS 1 L IVF bolus for hydration and give Meclizine 25 mg po x 1 for dizziness. Anticipate discharge to home and she reports needing a note for work. Progress Note #2: Time: 08:48 Progress Note UA shows 3+ ketones which goes along with her n/v and not eating or drinking well in last 12-24 hours. No infection seen on UA. Urine bedside test negative. IVF 2nd L of NS has infused and pt took meclizine. She has improved dizziness but states she is still very tired. Will discharge with script for meclizine and note to be off work today. Encourage fluids and rest and check with clinic for primary care to follow up on her symptoms. (CHANDA ALEJANDRO MD) Departure Impression Primary Impression: Dizziness Additional Impression: Dehydration Disposition: HOME, SELF-CARE Condition: Stable Departure-Patient Inst. Decision time for Depature: 08:50 (CHANDA ALEJANDRO MD) Referrals: SELF,MALLORY BRITO (PCP/Family) Primary Care Physician Patient Instructions: Dehydration, Adult ED, Dizziness, Adult ED Add. Discharge Instructions: Continue to stay well hydrated and drink plenty of fluids and get plenty of rest. Try eating small bland meals today to help keep your stomach settled. Use the Meclizine to help with dizziness, Zofran if needed for nausea/vomiting. Check with primary care clinic for continued concerns or if not improving. All discharge instructions reviewed with patient and/or family. Voiced understanding. Scripts Ondansetron (Ondansetron Odt) 4 Mg Tab.rapdis 4 MG PO Q6H PRN for NAUSEA/VOMITING for 3 Days, #12 TAB 0 Refills Prov: CHANDA ALEJANDRO MD 09/06/22 Meclizine HCl (Meclizine HCl) 25 Mg Tablet 25 MG PO TID PRN for DIZZINESS for 7 Days, #21 TAB 0 Refills Prov: CHANDA ALEJANDRO MD 09/06/22 Work/School Note: Work Release Form Date Seen in the Emergency Department: Sep 06, 2022 Return to Work: Sep 07, 2022 Restrictions: No Restrictions TAMI NJ MD Sep 06, 2022 06:55 CHANDA ALEJANDRO MD Sep 06, 2022 08:07
[2022-09-06 07:00] VITALS: BP_SYST 111; BP_SYST 115; BP_SYST 116; BP_DIAS 77; BP_DIAS 83; BP_DIAS 87
[2022-09-06] MEDS ORDERED: ONDANSETRON 4 MG/2 ML (SDV) Z0FRAN IVP ONE (07:00)
[2022-09-06] MEDS ORDERED: NS IV 1000 ML 1,000 ML IV SCH (07:00)
[2022-09-06 07:10] LABS: BASOPHILS % (AUTO) 1 % (0-10); EOSINOPHILS % (AUTO) 1 % (0-10); HEMATOCRIT 39 % (35-52); HEMOGLOBIN 13.3 g/dL (11.5-16.0); LYMPHOCYTES # (AUTO) 1.5 10^3/uL (1.0-4.0); LYMPHOCYTES % (AUTO) 24 % (12-44); MEAN CORPUSCULAR HEMOGLOBIN 31 pg (25-34); MEAN CORPUSCULAR HGB CONC 35 g/dL (32-36); MEAN CORPUSCULAR VOLUME 90 fL (80-99); MEAN PLATELET VOLUME 9.6 fL (9.0-12.2); MONOCYTES # (AUTO) 0.7 10^3/uL (0.0-1.0); MONOCYTES % (AUTO) 10 % (0-12); NEUTROPHILS # (AUTO) 4.3 10^3/uL (1.8-7.8); NEUTROPHILS % (AUTO) 65 % (42-75); PLATELET COUNT 270 10^3/uL (130-400); WHITE BLOOD COUNT 6.6 10^3/uL (4.3-11.0)
[2022-09-06 07:33] LABS: BILIRUBIN,TOTAL 0.3 MG/DL (0.1-1.0); CALCIUM 9.9 MG/DL (8.5-10.1); CREATININE SERUM 0.85 MG/DL (0.60-1.30); POTASSIUM 3.7 MMOL/L (3.6-5.0)
[2022-09-06 07:34] LABS: ALBUMIN 4.3 GM/DL (3.2-4.5)
[2022-09-06] MEDS ORDERED: MECLIZINE 25 MG (ANTIVERT) TAB PO STA (07:55)
[2022-09-06] MEDS ORDERED: NS IV 1000 ML 1,000 ML IV STA (07:55)
[2022-09-06 08:05] LABS: CLARITY,URINE TURBID; COLOR,URINE YELLOW; GLUCOSE, URINE (UA) NEGATIVE (NEGATIVE); KETONES,URINE 3+ (NEGATIVE); LEUKOCYTE ESTERASE ,URINE NEGATIVE (NEGATIVE); NITRITE,URINE NEGATIVE (NEGATIVE); PROTEIN,URINE 1+ (NEGATIVE)
[2022-09-06 08:29] LABS: BACTERIA,URINE FEW /HPF; BILIRUBIN,URINE 1+ (NEGATIVE); WBC,URINE 0-2 /HPF
[2022-09-06] MEDS ORDERED: ONDA4TAB11 PO (08:52)
[2022-09-06] MEDS ORDERED: MECL-149 PO (08:52)
[2022-09-06 08:54] VITALS: BP 110/82
== END 2022-09-06 08:54 | disposition home or self-care (01) ==
LOC: EDUNIT# 06:13 → ER FS 06:17
DX: E86.0 Dehydration (principal); R82.4 Acetonuria; R11.2 Nausea with vomiting, unspecified; F17.210 Nicotine dependence, cigarettes, uncomplicated; Z32.02 Encounter for pregnancy test, result negative; Z20.822 Contact with and (suspected) exposure to COVID-19; Z28.310 Unvaccinated for COVID-19
CPT/HCPCS: 36415; 80053; 81000; 83690; 84703; 85025; 87636; 99283; G0480; 80320